=== PATIENT | female | born 1955 | race Caucasian/White ===

== ENCOUNTER → 2016-09-25 | Outpatient (CLI) | payer BC ==
[~2016-09-25] MED LIST: ASPI81TA2 PO; MULT1TAB69 PO; OXYC5TAB84 PO
--- NOTE | 2016-09-26 10:26 | DI ---
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 Findings: Exam is limited by motion artifact particularly the sagittal T2 sequence. The long head biceps tendon is attenuated superiorly without definite tear. Subscapularis tendon is grossly normal. No complete tear. Thickening and increased T2 signal intensity within the distal supraspinatus tendon with evidence of deep partial-thickness bursal surface tearing at the anterior distal aspect involving the anterior half of the tendon and up to 50% of the tendon depth. The infraspinatus and teres minor tendons are grossly intact. No acute fracture. Mild acromioclavicular degenerative change. Degenerative superior labral tearing. Areas of cartilage loss on the humeral head. Mild fatty atrophy of the supra and infraspinatus muscles. Impression: Limited exam. 1. Partial thickness supraspinatus tear and degenerative labral tearing. .
== END ==
LOC: IMA 06:25
PROVIDERS: ATTEND Family Medicine
DX: S46.012A Strain of muscle(s) and tendon(s) of the rotator cuff of left shoulder, initial encounter (principal); X58.XXXA Exposure to other specified factors, initial encounter; Y93.9 Activity, unspecified; Y92.9 Unspecified place or not applicable; Y99.9 Unspecified external cause status; M25.512 Pain in left shoulder